=== PATIENT | male | born 2000 | race Caucasian/White ===

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

== ENCOUNTER 2019-11-19 23:21 | Emergency (ER) | payer BC ==
[~2019-11-19] VITALS: Ht 185.4 cm; Wt 77.1 kg
[~2019-11-19 23:21] MED LIST changes: +IBUPROFEN 600600 M1 PO
[2019-11-19 23:23] VITALS: BP 130/70
[2019-11-19] MEDS ORDERED: DOXYCYCLINE HYCLATE PO (23:30)
[2019-11-19] MEDS ORDERED: LEVAQUIN 500 M500 MG PO (23:42)
== END 2019-11-20 00:09 | disposition home or self-care (01) ==
LOC: ER 23:21
DX: S91.332A Puncture wound without foreign body, left foot, initial encounter (principal); Z79.899 Other long term (current) drug therapy; W45.0XXA Nail entering through skin, initial encounter; Y93.89 Activity, other specified; Y92.89 Other specified places as the place of occurrence of the external cause; Y99.8 Other external cause status